=== PATIENT | female | born 2000 | race Caucasian/White ===

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

== ENCOUNTER 2020-06-10 21:16 | Emergency (ER) | payer BC, OTHER ==
--- OUTSIDE RECORDS SUMMARY | 2020-06-10 21:18 | XMS REPORT | Continuity of Care Document ---
:2000 Author Organization [facility] Address [address] [place] [address] Care Team Providers Name Role Phone Unavailable Unavailable Unavailable Problems Condition Condition Condition Status Onset Resolution Last Treating Co mments Source Name Details Category Date Date Treatment Clinician Date H/O herpes H/O herpes Problem Active [facility] genitalis genitalis [facility] ALEXUS ALEXUS Problem Active [facility] (amniotic (amniotic [facility] - fluid fluid Memoria index) index) l borderline borderline Ou tpati low low ent Clinics High-risk High-risk Problem Active [facility] - in third in third Memori a trimester trimester l [facility] Encounter Encounter Problem Active [facility] - initial initial Memoria prescripti prescripti l on of on of Outpati contracept contracept en t bushra pills bushra pills Clin ics Encounter Encounter Problem Active [facility] - routine routine Memoria l follow-up follow-up Outp ati ent Clinics Vaginal Vaginal Problem Active [facility] discharge discharge [facility] Well woman Well woman Problem Active [facility] exam with exam with [facility] - routine routine Memoria gynecologi gynecologi l roman exam roman exam Outpat i ent Clinics Allergies, Adverse Reactions, Alerts This patient has no known allergies or adverse reactions. Medications Ordered Filled Start Stop Current Ordering Indication Dosage Frequency Signature Comments Components Source Medication Medication Date Date Medication? Clinician (SIG) Name Name Betsy Meyer 2018-08 2019- No Ugo [address] [facility] 0-06-14 [facility] - 00:00: 00:00 [facility] 00 :[facility] Immunizations Ordered Filled Immunization Date Status Comments Sourc e Immunization Name Name TDAP > 7 TDAP > 7 2018-04-[address] [facility] - Years-Adacel Years-Adacel 00:00:00 [facility] Out[facility] Procedures This patient has no known procedures. Encounters Start End Encounter Admission Attending Care Care Encounter Source Date/Time Date/Time Type Type Clinicians Facility Department ID 2019-06-07 2019-06-07 [facility] [id number] [facility] 08:41:00 08:41:00 [facility] Care [facility] 2019-05-31 2019-05-31 [facility] [id number] [facility] 09:15:00 09:15:00 t [facility] - Care [facility] 2019-02-15 2019-02-15 [facility] [id number] [facility] 11:00:00 11:00:00 t [facility] Care L es - Care [facility] 2018-11-15 2018-11-15 [facility] [id number] [facility] 11:00:00 11:00:00 t [facility] Care L [facility] - Care [facility] 2018-05-29 2018-05-29 [facility] [id number] [facility] 13:30:00 13:30:00 t [facility] Care L es - Care [facility] 2018-05-16 2018-05-16 [facility] [id number] [facility] 09:45:00 09:45:00 t [facility] Care L es - Care [facility] 2018-05-09 2018-05-09 [facility] [id number] [facility] 11:00:00 11:00:00 t [facility] Care L es - Care [facility] 2018-05-04 2018-05-04 [facility] [id number] [facility] [address] 13:30:00 13:30:00 t [facility] Womens Care L es - Care [facility] 2018-04-28 2018-04-28 [facility] [id number] [facility] 11:00:00 11:00:00 t Womens Womens Care L [facility] 2018-04-11 2018-04-11 [facility] [id number] [facility] 13:15:00 13:15:00 [facility] 2018-03-28 2018-03-28 [facility] [id number] [facility] 14:45:00 14:45:00 t [facility]omens Womens Care L [facility] 2018-03-14 2018-03-14 [facility] [id number] [facility] 11:00:00 11:00:00 [facility] 2018-02-09 2018-02-09 [facility] [id number] [facility] 15:30:00 15:30:00 t [facility] 2018-01-24 2018-01-24 [facility] [id number] [address] 15:50:00 15:50:00 t [facility] 2018-01-16 2018-01-16 [facility] [id number] [address] 08:56:00 08:56:00 [facility] 2018-01-10 2018-01-10 [facility] [id number] 11:15:00 11:15:00 [facility] Results This patient has no known results.
--- NOTE | 2020-06-10 21:54 | EDPHYS ---
Physician Documentation [facility] Name: Conchita Anne Age: 20 yrs Sex: Female : 2000 Arrival Date: 06/10/2020 Time: 21:26 Bed 2 Private MD: ED Physician Dylan Mckeon HPI: 06/10 21:46 This 20 yrs old Female presents to ER via Ambulatory with complaints of Hives.cp 21:46 Onset: The symptoms/episode began/occurred yesterday. Associated signs and symptoms: cp Pertinent positives: generalized itching. 21:46 The rash is located on the body diffusely. cp 21:46 Associated signs and symptoms: Pertinent negatives: burning sensation, difficulty cp breathing, fever, Pain swelling of lips, swelling of throat, swelling of tongue, sore throat. Treatment given at home: OTC Zyrtec. Patient reports being seen at Urgent Care yesterday and having negative test for strep and pending COVID-19 test. Patient was instructed to take OTC Zyrtec. 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 - Social history:: Smoking status: Patient denies any tobacco usage or history of. ROS: 21:47 Eyes: Negative for injury, pain, redness, and discharge. cp 21:47 Constitutional: Negative for body aches, chills, fever, poor PO intake. 21:47 ENT: Negative for drainage from ear(s), ear pain, sore throat, difficulty swallowing, difficulty handling secretions. 21:47 Cardiovascular: Negative for chest pain, palpitations. 21:47 Respiratory: Negative for cough, shortness of breath, wheezing. 21:47 Skin: Positive for rash, diffusely. 21:47 Neuro: Negative for headache, weakness. 21:47 All other systems are negative. Exam: 21:48 Head/Face: Normocephalic, atraumatic. cp 21:48 Constitutional: The patient appears in no acute distress, alert, awake, non-toxic, well developed, well nourished. 21:48 Eyes: Periorbital structures: appear normal, Conjunctiva: normal, no exudate, no injection, Lids and lashes: appear normal, bilaterally. 21:48 ENT: External ear(s): are unremarkable, Nose: is normal, Mouth: Lips: moist, Oral mucosa: moist, Posterior pharynx: Airway: no evidence of obstruction, patent. 21:48 Cardiovascular: Rate: tachycardic. 21:48 Respiratory: the patient does not display signs of respiratory distress, Respirations: normal, no use of accessory muscles, no retractions, labored breathing, is not present, Breath sounds: are clear throughout, no decreased breath sounds, no stridor, no wheezing. 21:48 Skin: consistent with hives, and is diffusely located. Vital Signs: 21:45 BP 128 / 92; Pulse 105; Resp 18 S; Temp 98.2(TE); Pulse Ox 100% on R/A; Weight 56.7 kg jd3 (R); Height 5 ft. 6 in. (167.64 cm) (R); Pain 0/10; 21:45 Body Mass Index 20.18 (56.70 kg, 167.64 cm) jd3 MDM: 21:35 Patient medically screened. cp 21:51 Data reviewed: vital signs, nurses notes. cp Administered Medications: 22:01 Drug: SOLU-Medrol 80 mg Route: IM; Site: right gluteus; lp1 22:15 Follow up: Response: No adverse reaction; Medication administered at discharge. lp1 Disposition: 06/11 01:15 Co-signature as Attending Physician, Dylan Mckeon MD. 7 Disposition: 06/10/20 21:53 Discharged to Home. Impression: Urticaria, unspecified. - Condition is Stable. - Discharge Instructions: Hives. - Prescriptions for Pepcid 20 mg Oral Tablet - take 1 tablet by ORAL route every 12 hours for 5 days; 10 tablet. Pepcid 20 mg Oral Tablet - take 1 tablet by ORAL route once daily for 10 days; 10 tablet. Albuterol Sulfate 90 mcg/actuation - inhale 1-2 puff by INHALATION route every 4-6 hours; 1 Inhaler. - Medication Reconciliation Form, Thank You Letter, Antibiotic Education, Prescription Opioid Use form. - Follow up: Private Physician; When: 2 - 3 days; Reason: Worsening of condition. - Problem is new. - Symptoms have improved. Signatures: Ayla Stern RN RN lp1 Yamil Smith PA PA cp Davies, Jonathon RN RN jd3 Dylan Mckeon MD MD [id number] Corrections: (The following items were deleted from the chart) 06/10 22:16 21:53 06/10/2020 21:53 Discharged to Home. Impression: Urticaria, unspecified. lp1 Condition is Stable. Forms are Medication Reconciliation Form, Thank You Letter, Antibiotic Education, Prescription Opioid Use. Follow up: Private Physician; When: 2 - 3 days; Reason: Worsening of condition. Problem is new. Symptoms have improved. cp
--- NOTE | 2020-06-10 21:54 | ER ---
Nurse's Notes [facility] Name: Conchita Anne Age: 20 yrs Sex: Female : 2000 Arrival Date: 06/10/2020 Time: 21:26 Bed 2 Private MD: Diagnosis: Urticaria, unspecified Presentation: 06/10 21:43 Chief complaint: Patient states: "I am having hives all over. this started yesterday, jd3 but it wasn't as bad. I went to urgent care yesterday and they told me to take Zyrtec and they did a COVID swab which I will get the results tomorrow.". Coronavirus screen: fatigue, muscle pain, runny nose, shortness of breath, sore throat, Client presents with at least one sign or symptom that may indicate coronavirus-19. Standard/surgical mask placed on the client. Provider contacted for isolation considerations. Ebola Screen: Patient negative for fever greater than or equal to 101.5 degrees Fahrenheit, and additional compatible Ebola Virus Disease symptoms. Onset: The symptoms/episode began/occurred gradually. Anaphylaxis evaluation, no signs or symptoms of anaphylaxis were noted. Initial Sepsis Screen: Does the patient meet any 2 criteria? No. Patient's initial sepsis screen is negative. Does the patient have a suspected source of infection? No. Patient's initial sepsis screen is negative. Risk Assessment: Do you want to hurt yourself or someone else? Patient reports no desire to harm self or others. Onset of symptoms was June 09, 2020. 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 - Social history:: Smoking status: Patient denies any tobacco usage or history of. Screenin:11 Abuse screen: Denies threats or abuse. Denies injuries from another. Nutritional lp1 screening: No deficits noted. Tuberculosis screening: No symptoms or risk factors identified. Fall Risk None identified. Assessment: 22:00 General: Appears in no apparent distress. Behavior is calm, cooperative, appropriate lp1 for age. Pain: Denies pain. Neuro: Level of Consciousness is awake, alert, obeys commands. Cardiovascular: Patient's skin is warm and dry. Respiratory: Airway is patent Trachea midline Respiratory effort is even, unlabored, Respiratory pattern is regular, Breath sounds are clear bilaterally. GI: No signs and/or symptoms were reported involving the gastrointestinal system. : No signs and/or symptoms were reported regarding the genitourinary system. EENT: Throat is clear is pink. Derm: Rash noted that is itchy, red, raised, urticaria, on general body. Musculoskeletal: No deficits noted. Vital Signs: 21:45 BP 128 / 92; Pulse 105; Resp 18 S; Temp 98.2(TE); Pulse Ox 100% on R/A; Weight 56.7 kg jd3 (R); Height 5 ft. 6 in. (167.64 cm) (R); Pain 0/10; 21:45 Body Mass Index 20.18 (56.70 kg, 167.64 cm) jd3 ED Course: 21:26 Patient arrived in ED. ag3 21:34 Yamil Smith PA is PHCP. cp 21:34 Dylan Mckeon MD is Attending Physician. cp 21:36 Ayla Stern, HASMUKH is Primary Nurse. lp1 21:45 Triage completed. jd3 21:47 Arm band placed on. jd3 22:12 Patient has correct armband on for positive identification. lp1 22:12 No provider procedures requiring assistance completed. Patient did not have IV access lp1 during this emergency room visit. Administered Medications: 22:01 Drug: SOLU-Medrol 80 mg Route: IM; Site: right gluteus; lp1 22:15 Follow up: Response: No adverse reaction; Medication administered at discharge. lp1 Outcome: 21:53 Discharge ordered by . cp 22:15 Discharged to home ambulatory, with significant other. lp1 22:15 Condition: good 22:15 Discharge instructions given to patient, Instructed on discharge instructions, follow up and referral plans. medication usage, Demonstrated understanding of instructions, follow-up care, medications, Prescriptions given X 3. 22:16 Patient left the ED. lp1 Signatures: Ayla Stern, RN RN lp1 Yamil Smith PA PA cp Davies, Jonathon, HASMUKH RN jd3 Nafisa William ag3
[2020-06-10] MEDS ORDERED: METHYLPREDNISOLONE 40 MG INJ ONE (22:07)
[2020-06-10 22:34] VITALS: BP 128/92; TEMP 98.2; O2SAT 100
== END 2020-06-10 22:16 | disposition home or self-care (01) ==
LOC: ER 21:16
DX: L50.9 Urticaria, unspecified (principal); Z88.0 Allergy status to penicillin
CPT/HCPCS: 96372; 99283; J2920

== ENCOUNTER 2021-08-01 15:11 | Emergency (ER) | payer BC, OTHER ==
--- OUTSIDE RECORDS SUMMARY | 2021-08-01 15:13 | XMS REPORT | Continuity of Care Document ---
:2000 Author Organization [facility] Address [address] [place] [address] Care Team Providers Name Role Phone Unavailable Unavailable Unavailable Problems Condition Condition Condition Status Onset Resolution Last Treating Co mments Source Name Details Category Date Date Treatment Clinician Date H/O herpes H/O herpes Problem Active [facility] genital[facility]is [facility] ALEXUS ALEXUS Problem Active [facility] (amniotic (amniotic [facility] - fluid fluid Memoria index) index) l borderline borderline [facility] High-risk High-risk Problem Active [facility] - in third in third Memori a trimester trimester [facility] Encounter Encounter Problem Active [...] discharge discharge [facility] Well woman Well woman [...] - 00:00: 00:00 Memoria 00 :[facility] Immunizations Ordered Filled Immunization Date Status Comments Sourc e Immunization Name Name TDAP > 7 TDAP > 7 2018-04-[address] [facility] - Years-Adacel Years-Adacel 00:00:00 [facility] Outpatient [facility] Procedures This patient has no known procedures. Encounters Start End Encounter Admission Attending Care Care Encounter Source Date/Time Date/Time Type Type Clinicians Facility Department ID 2019-06-07 2019-06-07 [facility] [id number] [facility] 08:41:00 08:41:00 [facility] - Care [facility] 2019-05-31 2019-05-31 [facility] [id number] [facility] 09:15:00 09:15:00 t [facility] - Care [facility] 2019-02-15 2019-02-15 [facility] [id number] [facility] 11:00:00 11:00:00 t Womens Womens Care L es - Care [facility] 2018-11-15 2018-11-15 [facility] [id number] 11:00:00 11:00:00 t [facility]omens Womens Care L [facility] - Care [facility] 2018-05-29 2018-05-29 [facility] [id number] [facility] 13:30:00 13:30:00 t Womens Womens Care L es - Care [facility] 2018-05-16 2018-05-16 [facility] [id number] 09:45:00 09:45:00 t Womens Womens Care L es - Care [facility] 2018-05-09 2018-05-09 [facility] [id number] [facility] 11:00:00 11:00:00 t Womens Womens Care L es - Care [facility] 2018-05-04 2018-05-04 [facility] [id number] [facility] 13:30:00 13:30:00 t Womens Womens Care L es - Care [facility] 2018-04-28 2018-04-28 [facility] [id number] [facility] 11:00:00 11:00:00 t Womens Womens Care L [facility] - [facility] 2018-04-11 2018-04-11 [facility] [id number] [facility] 13:15:00 13:15:00 [facility] 2018-03-28 2018-03-28 [facility] [id number] [facility] [address] 14:45:00 14:45:00 t [facility] 2018-03-14 2018-03-14 [facility] [id number] [facility] 11:00:00 11:00:00 [facility] 2018-02-09 2018-02-09 [facility] [id number] [address] 15:30:00 15:30:00 [facility] 2018-01-24 2018-01-24 [facility] [id number] 15:50:00 15:50:00 [facility] 2018-01-16 2018-01-16 [facility] [id number] 08:56:00 08:56:00 t [facility] 2018-01-10 2018-01-10 [facility] [id number] 11:15:00 11:15:00 [facility] Results This patient has no known results.
--- NOTE | 2021-08-01 16:28 | RAD REPORT ---
EXAM DESCRIPTION: [facility] Single View08/01/2021 4:08 pm CLINICAL HISTORY: Chest pain COMPARISON: none FINDINGS: The lungs are hyperaerated. The lungs appear clear of acute infiltrate. The heart is normal size
[2021-08-01 16:30] LABS: Absolute Lymphocytes (CBC) 1.8 K/uL (0.7-4.9); Basophils % 0.3 % (0-1.3); Hematocrit 36.4 % (36.0-45.0); Lymphocytes % 17.1 % (15.3-44.8); MPV 8.6 fL (7.6-11.3); RBC Red Blood Cell Count 3.99 M/uL (3.86-4.86)
[2021-08-01 16:37] LABS: Protime INR 1.17
[2021-08-01 16:44] LABS: ALT/SGPT 11 U/L (12-78); AST/SGOT 15 U/L (15-37); Albumin 4.3 g/dL (3.4-5.0); Alkaline Phosphatase 54 U/L (45-117); BUN Blood Urea Nitrogen 12 mg/dL (7-18); Bicarbonate 24 mmol/L (21-32); Bilirubin Direct 0.2 mg/dL (0-0.2); Bilirubin Total 0.7 mg/dL (0.2-1.0); Glucose Level 84 mg/dL (74-106); Magnesium 2.2 mg/dL (1.8-2.4); NT PRO-BNP 99 pg/mL (<125); Potassium 3.9 mmol/L (3.5-5.1); Protein, Total 8.1 g/dL (6.4-8.2); Sodium Level 142 mmol/L (136-145); Troponin (Emerg Dept Use Only) < 0.02 ng/mL (0.0-0.045)
[2021-08-01 17:40] LABS: Urine Blood Negative (Negative); Urine Glucose Negative (Negative); Urine Protein Negative (Negative); Urine Specific Gravity >=1.030 (1.005-1.030)
[2021-08-01] MEDS ORDERED: LIDOCAINE VISCOUS 2% SOLN 15 ML UDC ONE (18:06)
[2021-08-01] MEDS ORDERED: MAGNES/ALUMIN/SIMET 30ML UCUP ONE (18:07)
--- NOTE | 2021-08-01 18:21 | EDPHYS ---
Physician Documentation [facility] Name: Conchita Anne Age: 21 yrs Sex: Female : 2000 Arrival Date: 08/01/2021 Time: 15:15 Bed 20 Private MD: ED Physician Tanner Hazel HPI: 08/01 15:56 This 21 yrs old Unknown Female presents to ER via Ambulatory with complaints of Chest pm1 Pain. 15:56 The patient or guardian reports chest pain that is located primarily in the mid-sternal pm1 area and right breast. The pain does not radiate. Associated signs and symptoms: Pertinent negatives: abdominal pain, cough, diaphoresis, dizziness, headache, nausea, palpitations, shortness of breath, vomiting. The chest pain is described as burning. Duration: The patient or guardian reports multiple episodes. Modifying factors: the symptoms are aggravated by eating, drinking water. Patient attributes chest pain to taking clindamycin. Severity of pain: in the emergency department the pain is unchanged. The patient has not experienced similar symptoms in the past. The patient has been recently seen by a physician: Patient saw dentist recently for infected impacted wisdom teeth. Patient started on clindamycin on Tuesday and reports onset of chest pain after taking medication. [place] like medication was stuck in her throat. Since then she has reported chest pain. Pain made worse with eating and drinking. 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 - Social history:: Smoking status: Patient denies any tobacco usage or history of. ROS: 15:56 Constitutional: Negative for fever, chills, and weight loss. pm1 15:56 Respiratory: Negative for shortness of breath, cough, wheezing, and pleuritic chest pain, Abdomen/GI: Negative for abdominal pain, nausea, vomiting, diarrhea, and constipation, Back: Negative for injury and pain, MS/Extremity: Negative for injury and deformity, Skin: Negative for injury, rash, and discoloration, Neuro: Negative for headache, weakness, numbness, tingling, and seizure. 15:56 Cardiovascular: Positive for chest pain, of the right breast and mid-sternal area, Negative for edema, palpitations. 15:56 All other systems are negative. Exam: 15:56 Constitutional: This is a well developed, well nourished patient who is awake, alert, pm1 and in no acute distress. Head/Face: Normocephalic, atraumatic. 15:56 Back: No spinal tenderness. No costovertebral tenderness. Full range of motion. Skin: Warm, dry with normal turgor. Normal color with no rashes, no lesions, and no evidence of cellulitis. MS/ Extremity: Pulses equal, no cyanosis. Neurovascular intact. Full, normal range of motion. 15:56 Eyes: Exam is negative for acute changes, Extraocular movements: intact throughout, Conjunctiva: no acute changes. 15:56 ENT: Dental exam: abscess, is not appreciated, gum swelling, not appreciated. 15:56 Chest/axilla: Inspection: normal, Palpation: tenderness, that is mild, of the mid-sternal area, that totally reproduces the patient's complaints. 15:56 Cardiovascular: Exam negative for acute changes, Rate: normal, Rhythm: regular, Pulses: no pulse deficits are appreciated. 15:56 Respiratory: Exam negative for acute changes, the patient does not display signs of respiratory distress, Respirations: normal, Breath sounds: are clear throughout. 15:56 Abdomen/GI: Exam negative for acute changes, Inspection: abdomen appears normal, Palpation: abdomen is soft and non-tender, in all quadrants. 15:56 Neuro: Exam negative for acute changes, Orientation: is normal, Mentation: is normal, Motor: is normal, moves all fours. Vital Signs: 15:37 Resp 15; Weight 56.7 kg; Height 5 ft. 6 in. (167.64 cm); Pain 8/10; ss 15:40 BP 123 / 85; Pulse 90; Temp 99.0(TE); Pulse Ox 100% on R/A; ss 16:15 BP 110 / 69; Pulse 79; Resp 16 S; Pulse Ox 98% on R/A; jg9 17:15 BP 108 / 72; Pulse 84; Resp 16 S; Pulse Ox 100% on R/A; jg9 18:15 BP 110 / 78; Pulse 82; Resp 16 S; Pulse Ox 96% on R/A; jg9 15:37 Body Mass Index 20.18 (56.70 kg, 167.64 cm) ss MDM: 15:45 Patient medically screened. pm1 17:59 Data reviewed: vital signs. Data interpreted: Pulse oximetry: on room air is 100 %. pm1 Interpretation: normal. 18:19 Counseling: I had a detailed discussion with the patient and/or guardian regarding: the pm1 historical points, exam findings, and any diagnostic results supporting the discharge/admit diagnosis, lab results, radiology results, the need for outpatient follow up, to return to the emergency department if symptoms worsen or persist or if there are any questions or concerns that arise at home. 08/01 15:56 Order name: Basic Metabolic Panel pm1 08/01 15:56 Order name: CBC with Diff pm1 08/01 15:56 Order name: LFT's pm1 08/01 15:56 Order name: Magnesium pm1 08/01 15:56 Order name: NT PRO-BNP; Complete Time: 17:34 pm1 08/01 15:56 Order name: PT-INR; Complete Time: 17:34 pm1 08/01 15:56 Order name: Troponin (emerg Dept Use Only); Complete Time: 17:34 pm1 08/01 15:56 Order name: D-Dimer; Complete Time: 17:34 pm1 08/01 15:56 Order name: Basic Metabolic Panel; Complete Time: 17:34 EDMS 08/01 15:56 Order name: CBC with Automated Diff; Complete Time: 16:35 EDMS 08/01 15:56 Order name: Liver (Hepatic) Function; Complete Time: 17:34 EDMS 08/01 15:56 Order name: Magnesium; Complete Time: 17:34 EDMS 08/01 17:39 Order name: Urine Dipstick-Ancillary; Complete Time: 17:59 EDMS 08/01 17:40 Order name: Urine --Ancillary (enter results); Complete Time: 17:59 08/01 15:56 Order name: XRAY Chest (1 view); Complete Time: 16:35 pm1 08/01 15:56 Order name: EKG; Complete Time: 15:56 pm1 08/01 15:56 Order name: Cardiac monitoring; Complete Time: 17:08 pm1 08/01 15:56 Order name: EKG - Nurse/Tech; Complete Time: 17:08 pm1 08/01 15:56 Order name: IV Saline Lock; Complete Time: 17:08 pm1 08/01 15:56 Order name: Labs collected and sent; Complete Time: 17:08 pm1 08/01 15:56 Order name: O2 Per Protocol; Complete Time: 17:08 pm1 08/01 15:56 Order name: O2 Sat Monitoring; Complete Time: 17:08 pm1 12 15:56 Order name: Urine Dipstick-Ancillary (obtain specimen); Complete Time: 17:39 pm1 08/01 15:56 Order name: Urine Test (obtain specimen); Complete Time: 17:39 pm1 Administered Medications: 18:07 Not Given (Patient Refused): Pepcid (famotidine) 20 mg IVP once; dilute with 10 mL 0.9% jg9 NaCl; give over 2 minutes 18:09 Drug: GI Cocktail without - (Maalox Suspension 30 ml, Lidocaine Liquid 2 % 15 jg9 ml) Route: PO; 18:30 Follow up: Response: No adverse reaction; Pain is decreased jg9 Disposition: 08/02 07:01 Co-signature as Attending Physician, Tanner Hazel MD I agree with the assessment and rn plan of care. Attestation: The patient's history, exam findings, diagnostics, and a summary of any interventions or procedures was reviewed in detail with Barry Carpenter NP. Disposition Summary: 08/01/21 18:20 Discharge Ordered Location: Home pm1 Problem: new pm1 Symptoms: have improved pm1 Condition: Stable pm1 Diagnosis - Chest pain, unspecified pm1 Followup: pm1 - With: Emergency Department - When: As needed - Reason: Worsening of condition Followup: pm1 - With: Private Physician - When: 2 - 3 days - Reason: Recheck today's complaints, Continuance of care, Re-evaluation by your physician Discharge Instructions: - Discharge Summary Sheet pm1 - Nonspecific Chest Pain, Adult pm1 Forms: - Medication Reconciliation Form pm1 - Thank You Letter pm1 - Antibiotic Education pm1 - Prescription Opioid Use pm1 Prescriptions: - Pepcid 20 mg Oral Tablet - take 1 tablet by ORAL route every 12 hours for 10 days; 20 tablet; Refills: 0, pm1 Product Selection Permitted Signatures: Dispatcher [employer] Tanner Valdovinos MD MD rn Smirch, Shelby, RN RN ss Barry Carpenter, TALENT ADVISOR TALENT ADVISOR pm1 Nafisa Maya jg9
--- NOTE | 2021-08-01 18:21 | ER ---
Nurse's Notes [facility] Name: Conchita Anne Age: 21 yrs Sex: Female : 2000 Arrival Date: 08/01/2021 Time: 15:15 Bed 20 Private MD: Diagnosis: Chest pain, unspecified Presentation: 08/01 15:37 Chief complaint: Patient states: "I started taking Clindamycin because of a tooth that ss is infected. Every time I took it I could feel it get stuck in my throat. I haven't taken it since night because every time I would swallow it would hurt. It keeps me up at night.". Coronavirus screen: Client denies travel out of the [place] in the last 14 days. Ebola Screen: Patient denies exposure to infectious person. Patient denies travel to an Ebola-affected area in the 21 days before illness onset. Initial Sepsis Screen: Does the patient meet any 2 criteria? No. Patient's initial sepsis screen is negative. Does the patient have a suspected source of infection? No. Patient's initial sepsis screen is negative. Risk Assessment: Do you want to hurt yourself or someone else? Patient reports no desire to harm self or others. Onset of symptoms was July 30, 2021. 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 - Social history:: Smoking status: Patient denies any tobacco usage or history of. Screenin:23 Abuse screen: Denies threats or abuse. Denies injuries from another. Nutritional jg9 screening: difficulty drinking/swallowing since Tuesday. . Tuberculosis screening: No symptoms or risk factors identified. Fall Risk None identified. Assessment: 16:00 General: Appears in no apparent distress. comfortable, Behavior is calm, cooperative, jg9 appropriate for age, quiet. Pain: Complains of pain in chest-pain with eating/swallowing since tuesday when she started taking clindamycin. Neuro: No deficits noted. Cardiovascular: No deficits noted. Respiratory: No deficits noted. GI: No deficits noted. GI: No deficits noted. Reports intolerance of fluids, intolerance of food, Pain is 10 out of 10 on a pain scale. pain with eating/drinking-feels like something is stuck in her esophagus. : No deficits noted. 16:25 Pain: Pain began 2-3 days ago. jg9 16:25 Pain: Pain does not radiate. jg9 Vital Signs: 15:37 Resp 15; Weight 56.7 kg; Height 5 ft. 6 in. (167.64 cm); Pain 8/10; ss 15:40 BP 123 / 85; Pulse 90; Temp 99.0(TE); Pulse Ox 100% on R/A; ss 16:15 BP 110 / 69; Pulse 79; Resp 16 S; Pulse Ox 98% on R/A; jg9 17:15 BP 108 / 72; Pulse 84; Resp 16 S; Pulse Ox 100% on R/A; jg9 18:15 BP 110 / 78; Pulse 82; Resp 16 S; Pulse Ox 96% on R/A; jg9 15:37 Body Mass Index 20.18 (56.70 kg, 167.64 cm) ss ED Course: 15:15 Patient arrived in ED. ds1 15:39 Triage completed. ss 15:39 Arm band placed on right wrist. ss 15:45 Barry Carpenter NP is PHCP. pm1 15:45 Tanner Hazel MD is Attending Physician. pm1 16:07 XRAY Chest (1 view) In Process Unspecified. EDMS 16:10 Inserted saline lock: 20 gauge in right antecubital area, using aseptic technique. jg9 16:15 Patient maintains SpO2 saturation greater than 95% on room air. jg9 16:24 Patient has correct armband on for positive identification. Bed in low position. Call j9 light in reach. Side rails up X 1. environmental monitoring technician on. Pulse ox on. NIBP on. Warm blanket given. 17:08 Basic Metabolic Panel Sent. 5 17:08 CBC with Diff Sent. [facility] 17:08 LFT's Sent. [facility] 17:08 Magnesium Sent. [facility] 17:08 EKG done. [facility] 17:29 No apparent distress. up to bathroom. jg9 17:39 Urine collected: clean catch specimen, tea colored. [facility] 17:39 Urine Dipstick-Ancillary Sent. [facility] 17:50 Patient wants IV out. jg9 18:38 No provider procedures requiring assistance completed. jg9 Administered Medications: 18:07 Not Given (Patient Refused): Pepcid (famotidine) 20 mg IVP once; dilute with 10 mL 0.9% jg9 NaCl; give over 2 minutes 18:09 Drug: GI Cocktail without - (Maalox Suspension 30 ml, Lidocaine Liquid 2 % 15 jg9 ml) Route: PO; 18:30 Follow up: Response: No adverse reaction; Pain is decreased jg9 Outcome: 18:20 Discharge ordered by . pm1 18:38 Discharged to home ambulatory. jg9 18:38 Condition: stable 18:38 Discharge instructions given to patient, Instructed on discharge instructions, follow up and referral plans. Demonstrated understanding of instructions, follow-up care, medications, Prescriptions given X 1. 18:40 Patient left the ED. jg9 Signatures: Dispatcher [employer] [facility] Aggie Bonilla ds1 Magdalena Neri RN RN Barry Saucedo NP METAL COATER 1 Griselda Arriola [facility] Nafisa Maya jg9
[2021-08-01 19:00] VITALS: TEMP 99
[2021-08-01 19:05] VITALS: BP 110/78; O2SAT 96
== END 2021-08-01 18:40 | disposition home or self-care (01) ==
LOC: ER 15:11
DX: R07.9 Chest pain, unspecified (principal); Z88.0 Allergy status to penicillin
CPT/HCPCS: 36415; 71045; 80048; 80076; 81003; 81025; 83735; 83880; 84484; 85025; 85379; 85610; 93005; 99285